=== PATIENT | male | born 1955 | race Hispanic/Latino ===

== ENCOUNTER 2017-11-21 18:01 | Emergency (ER) | payer SELFPAY ==
[2017-11-21 18:48] LABS: INR-International Normal Ratio 0.9; PTT 29.8 SEC (22.9-36.1); Prothrombin Time 12.6 SEC (12.0-14.7)
[2017-11-21 19:03] LABS: #Basophils 0.1 thou/uL (0.0-0.2); #Eosinphils 0.1 thou/uL (0.0-0.7); #Lymphocytes 2.3 thou/uL (1.20-3.40); #Neutrophils 5.6 thou/uL (1.40-6.50); %Basophils 1.1 % (0.0-1.0); %Eosinophils 1.4 % (0.0-10.0); %Monocytes 10.7 % (0.0-10.0); %Neutrophils 61.7 % (42.0-75.0); Hemoglobin 14.7 g/dL (14.0-18.0); Mean Corpuscular HGB CONC 34.2 g/dL (32.0-36.0); Mean Corpuscular Hemoglobin 31.4 pg (27.0-31.0); Mean Corpuscular Volume 91.6 fl (80.0-94.0); Mean Platelet Volume 6.7 fL (7.4-10.4); Platelet Count 353 thou/uL (130-400); RBC Distribution Width 12.4 % (11.5-14.5); Red Blood Cell (RBC) Count 4.69 mill/uL (4.70-6.10); White Blood Cell (WBC) Count 9.1 thou/uL (4.8-10.8)
[2017-11-21 19:10] LABS: ALT (SGPT) 60 U/L (8-55); AST (SGOT) 32 U/L (5-34); Albumin 4.6 g/dL (3.5-5.0); Alkaline Phosphatase 129 U/L (40-150); Anion Gap 16 mmol/L (10-20); BUN (Urea Nitrogen) 16 mg/dL (8.4-25.7); Bilirubin, Total 0.4 mg/dL (0.2-1.2); Calc. Creatinine Clearance 0 mL/min (70-130); Calcium 9.4 mg/dL (7.8-10.44); Carbon Dioxide 23 mmol/L (22-29); Chloride 97 mmol/L (98-107); Estimated GFR-MDRD Greater than 90; Globulin 3.3 g/dL (2.4-3.5); Glucose 267 mg/dL (70-105); Potassium 3.8 mmol/L (3.5-5.1); Protein, Total 7.9 g/dL (6.0-8.3); Sodium 132 mmol/L (136-145)
[2017-11-21] MEDS ORDERED: Oxymetazoline HCl 0.05% ( 15 ML ) ONE ×2 (23:38→23:40)
[2017-11-21] MEDS ORDERED: Lidocaine 1% w/Epinephrine 1:100K 20 ML VIAL ONE (23:38)
== END 2017-11-22 01:00 | disposition home or self-care (01) ==
LOC: ERS 18:01
DX: K06.9 Disorder of gingiva and edentulous alveolar ridge, unspecified (principal); E11.9 Type 2 diabetes mellitus without complications; E78.5 Hyperlipidemia, unspecified; I10 Essential (primary) hypertension
CPT/HCPCS: 36415; 80053; 85025; 85610; 85730; 99283; J2001

== ENCOUNTER 2020-07-22 06:58 | Outpatient (CLI) | payer SELFPAY ==
[2020-07-23 04:01] LABS: SARS-CoV-2 MS2 Positive; SARS-CoV-2 N Gene Negative; SARS-CoV-2 S Gene Negative; SARS-CoV-2 by NAA Not Detected (NotDetected); SARS-CoV-2 orf1ab Negative
== END 2020-07-22 06:59 | disposition home or self-care (01) ==
LOC: LABBT 06:58
PROVIDERS: ATTEND Ophthalmology Retina Specialist
DX: Z01.812 Encounter for preprocedural laboratory examination (principal); H33.42 Traction detachment of retina, left eye; Z20.828 Contact with and (suspected) exposure to other viral communicable diseases
CPT/HCPCS: 87635; U0003

== ENCOUNTER 2020-07-27 08:19 | Day surgery (SDC) | payer OTHER ==
[2020-07-26 13:01] VITALS: BMI 26.9
[~2020-07-27 08:19] MED LIST: EPINEPHrine 0.3 MG in Ophthalmic Irrigation Solution 500 ML IRR SCH; Fentanyl 100 MCG/2 ML VIAL ONE; Midazolam HCl 2 mg/2 ml Vial ONE
[2020-07-27] MEDS ORDERED: Cyclopentolate 1% Opth Drop 2 ML BOT ONE (08:43)
[2020-07-27] MEDS ORDERED: Phenylephrine 2.5% Ophth Soln 5 ML BOT ONE (08:43)
[2020-07-27] MEDS ORDERED: Midazolam HCl 2 mg/2 ml Vial ONE (09:17)
[2020-07-27] MEDS ORDERED: Famotidine/PF 20 mg/2ml Vial ONE (09:45)
[2020-07-27] MEDS ORDERED: PHENYLEPHRINE-NS 100 MCG/ML 10 ML SYRINGE ONE (09:57)
[2020-07-27] MEDS ORDERED: PROPOFOL 200 MG/20 ML VIAL ONE (09:57)
[2020-07-27] MEDS ORDERED: Lidocaine 1% PF 5 ML VIAL ONE (09:57)
[2020-07-27] MEDS ORDERED: Metoclopramide HCl 10 MG/2 ML VIAL ONE (09:57)
[2020-07-27] MEDS ORDERED: Ondansetron PF 4 MG/2 ML Vial ONE (09:57)
[2020-07-27] MEDS ORDERED: Maxitrol 0.1% Opth Oint 3.5 GM TUBE ONE (11:13)
[2020-07-27] MEDS ORDERED: Triamcinolone 40 MG/ML VIAL ONE (11:13)
[2020-07-27] MEDS ORDERED: Fentanyl 100 MCG/2 ML VIAL ONE (12:01)
--- NOTE | 2020-07-27 12:12 | OP ---
DATE OF PROCEDURE: 07/27/2020 PRINCIPAL PREOPERATIVE DIAGNOSES: 1. Macula off tractional retinal detachment, left eye. 2. Proliferative diabetic retinopathy, left eye. POSTOPERATIVE DIAGNOSIS: 1. Macula off tractional retinal detachment, left eye. 2. Proliferative diabetic retinopathy, left eye. PROCEDURE PERFORMED: 1. 25-gauge pars plana vitrectomy, left eye. 2. Tractional retinal detachment repair, left eye. 3. Proliferative panretinal photocoagulation, left eye. 4. Silicone oil fill, left eye. ESTIMATED BLOOD LOSS: None. SPECIMENS REMOVED: None. COMPLICATIONS: None. ANESTHESIA: LMA. DESCRIPTION OF PROCEDURE: The patient was identified in the preoperative holding area, where the correct eye being the left eye was marked for surgery. The patient was taken to the operating room, where general anesthesia was induced. The left eye was prepped and draped in usual sterile ophthalmic fashion for surgery. A wire-clip lid speculum was placed. A standard 25-gauge pars plana vitrectomy platform was fashioned with trocars placed approximately 4 mm from the limbus. The infusion was noted to be within the vitreous cavity prior to being turned on to an infusion pressure of 20 mmHg. The light pipe and microvitrector were introduced in the eye under visualization of the BIOM viewing system. A core and peripheral shave vitrectomy were performed taking down the vitreous to the area of the retinal detachment. A dense fibrotic band was noted along the proximal inferotemporal arcade as well as the entirety of the superotemporal arcade. This resulted in a tractional retinal detachment extending proximally to the equator. The fibrotic tissue was gently dissected with combination of the use of the microvitrector as well as using bimanual technique, using a pick fiberoptic and a 25-gauge Darryl MaxGrip forceps. The fibrosis was gently peeled off the surface of the retina, which allowed for improved mobility of the retina. A small defect was created superior to the superotemporal arcade vessels approximately 12 o'clock. This area was marked with endo cautery. The remainder of the fibrosis was continually removed in the prescribed fashion. Following complete removal of the fibrosis, an air-fluid exchange was performed through the use of the defect superiorly. This allowed for improved flattening of the retina. Following completion subsequently, the endolaser was used to provide panretinal photocoagulation as well as laser around the superior defect. The laser was noted to be as flat as to be given the complete removal of all visible fibrosis. Following laser, the flute needle was reintroduced in the eye to remove any residual subretinal fluid. A complete silicone oil fill was subsequently achieved. The cannulas were sequentially removed and all sclerotomies were sutured with 8-0 Vicryl suture. Following suturing, all sclerotomies were noted to be oil tight. Subconjunctival Kenalog was injected. The wire-clip lid speculum was removed followed by application of TobraDex ophthalmic ointment and a light patch and shield. The patient tolerated the procedure well, taken to the outpatient recovery area in good condition. Job ID: [id number]
== END 2020-07-27 14:10 | disposition home or self-care (01) ==
LOC: SDC 08:19
PROVIDERS: ATTEND Ophthalmology Retina Specialist
PROC: 08QF3ZZ Repair Left Retina, Percutaneous Approach (ICD-10-PCS; principal; 2020-07-27)
PROC: 08T53ZZ Resection of Left Vitreous, Percutaneous Approach (ICD-10-PCS; principal; 2020-07-27)
DX: E11.3532 Type 2 diabetes mellitus with proliferative diabetic retinopathy with traction retinal detachment not involving the macula, left eye (principal); Z79.84 Long term (current) use of oral hypoglycemic drugs; Z79.899 Other long term (current) drug therapy; Z88.0 Allergy status to penicillin
CPT/HCPCS: C1814; J0171; J2250; J2405; J2704; J2765; J3010; J3301; S0028

== ENCOUNTER 2023-05-10 02:47 | Inpatient (IN) | payer OTHER, SELFPAY ==
[2023-05-10] MEDS ORDERED: Cefepime 2 GM VIAL ONE (03:19)
[2023-05-10] MEDS ORDERED: LORazepam 2 MG/ML SYR.(CARPUJECT) ONE (03:19)
[2023-05-10 03:21] LABS: Hematocrit 38.1 % (42.0-52.0); Hemoglobin 13.3 g/dL (14.0-18.0); Mean Corpuscular HGB CONC 34.9 g/dL (32.0-36.0); Mean Corpuscular Hemoglobin 31.3 pg (27.0-31.0); Mean Corpuscular Volume 89.6 fl (78.0-98.0); Mean Platelet Volume 9.2 fL (7.4-10.4); Platelet Count 263 10x3/uL (130-400); RBC Distribution Width 13.1 % (11.5-14.5); Red Blood Cell (RBC) Count 4.25 mill/uL (4.70-6.10); White Blood Cell (WBC) Count 6.4 10x3/uL (4.8-10.8)
[2023-05-10 03:23] LABS: Delete Auto Diff?? YES; Manual Diff?? YES
[2023-05-10 03:28] LABS: Actual Bicarbonate (HCO3v) 19.9 mEq/L (22-28); Base Excess -3.6 mEq/L (-2.0 to +3.0); Calcium, Ionized (venous) 1.01 mmol/L (1.16-1.32); Chloride (VBG) 95 mmol/L (98-106); Hematocrit-VBG 42 % (42.0-52.0); Hemoglobin (Hb) 14.4 g/dL (12.6-17.4); Sodium 130.9 mmol/L (133-146); pH (venous) 7.412 (7.32-7.43)
[2023-05-10] MEDS ORDERED: Acetaminophen 500 MG TAB ONE (03:36)
[2023-05-10 03:45] LABS: Anisocytosis SLIGHT = 6-15 cells HPF (0-5); Band 29 % (5-11); CellaVision Operator ID lab.sh2; Large Platelets 4.1 % (0-5); Lymphocytes 6 % (21-51); Macrocytosis SLIGHT = 6-15 cells HPF (0-5); Monocytes 1 % (0-10); Neutrophil 64 % (42-75); Platelet Adequacy Comment Platelets Normal; Polychromasia SLIGHT = 2-3 cells HPF (0-2); Smudge Cells 13.3 %; Total Cell Count 98; Vacuoles SLIGHT
[2023-05-10 03:52] LABS: Acetaminophen Less than 10 mcg/mL (10.0-30.0); Alcohol Less than 10.0 mg/dL (Less than 10); Lipase 94 U/L (8-78); Magnesium 1.4 mg/dL (1.6-2.6); Salicylate Less than 8.0 mg/dL (15.0-30.0)
[2023-05-10 03:53] LABS: ALT (SGPT) 20 U/L (8-55); AST (SGOT) 24 U/L (5-34); Alkaline Phosphatase 112 U/L (40-110); Anion Gap 22 mmol/L (10-20); BUN (Urea Nitrogen) 12 mg/dL (8.4-25.7); CK (CPK) 157 U/L (30-200); Calc. Creatinine Clearance 0 mL/min (70-130); Calcium 8.5 mg/dL (7.8-10.44); Carbon Dioxide 17 mmol/L (23-31); Chloride 95 mmol/L (98-107); Estimated GFR 70; Globulin 2.7 g/dL (2.4-3.5); Glucose 276 mg/dL (80-115); Potassium 3.7 mmol/L (3.5-5.1); Protein, Total 6.7 g/dL (5.8-8.1); Sodium 130 mmol/L (136-145)
[2023-05-10 03:56] LABS: Troponin I Less than 0.010 ng/mL (< 0.028)
[2023-05-10] MEDS ORDERED: Vancomycin 1.5 GRAM/300 ML BAG 1.5 GM in Premix Bag 1 BAG IVPB SCH (04:15)
[2023-05-10 04:24] LABS: Amphetamine Not Detected (NotDetected); Barbiturates Screen Not Detected (NotDetected); Benzodiazepine Screen Not Detected (NotDetected); Cocaine Metabolite Screen Not Detected (NotDetected); Methadone Not Detected (NotDetected); Methamphetamine Not Detected (NotDetected); Opiate Screen Not Detected (NotDetected); Oxycodone Screen Not Detected (NotDetected); Phencyclidine (PCP) Not Detected (NotDetected); THC/Cannabinoid Screen Not Detected (NotDetected); Tricyclic Screen Not Detected (NotDetected)
[2023-05-10 04:25] LABS: Bacteria/HPF 3+ HPF (None Seen); Bilirubin Negative (Negative); Blood, Urine 1+ (Negative); CAUTI Indications for Culture Alt mental st,lethar; Clarity Turbid (Clear); Glucose, Urine (Dipstick) Greater than 1000 mg/dL (Negative); Ketone, Urine Trace mg/dL (Negative); Leukocyte 500 Leu/uL (Negative); Nitrite 1+ (Negative); Protein, Urine (Dipstick) 100 mg/dL (Neg-Trace); Specific Gravity, Urine 1.026 (1.002-1.036); Squamous Epithelial 0-3 HPF (0-3); Urobilinogen Normal mg/dL (Less than 2); WBC/HPF Greater than 50 HPF (0-3); pH, Urine 5.5 (5.0-9.0)
[2023-05-10 04:26] LABS: Urine Culture Reflex Yes Yes
[2023-05-10 04:35] LABS: SARS-CoV-2 NAA Rapid Test Not Detected (NotDetected)
[2023-05-10] MEDS ORDERED: Lorazepam 2 MG/ML VIAL IM PRN (06:02)
[2023-05-10] MEDS ORDERED: Lorazepam 1 MG TAB PO PRN (06:02)
[2023-05-10] MEDS ORDERED: Ondansetron ODT 4 MG TAB PO PRN (06:02)
[2023-05-10] MEDS ORDERED: Acetaminophen 325 MG TAB PO PRN ×2 (06:11→07:39)
[2023-05-10] MEDS ORDERED: Calcium Carbonate 500 MG ChewTAB PO PRN (06:11)
[2023-05-10] MEDS ORDERED: Electrolyte Replacement Protocol 1 EACH FS SCH (06:15)
[2023-05-10] MEDS ORDERED: Lorazepam 1 MG TAB PO SCH (06:15)
[2023-05-10 06:47] VITALS: BMI 23.8
[2023-05-10] MEDS ORDERED: Magnesium Sulfate In Water 4 GM in Premix Bag 1 BAG IVPB SCH (07:15)
[2023-05-10] MEDS ORDERED: Thiamine HCl 200 MG/2 ML VIAL SLOW IVP SCH ×2 (07:30→09:00)
[2023-05-10] MEDS ORDERED: VANC/ABX IVPB PRN (07:33)
[2023-05-10] MEDS ORDERED: Dextrose 5% in Water 1,000 ML IV PRN (07:34)
[2023-05-10] MEDS ORDERED: Glucagon 1 MG/ML KIT IM PRN (07:34)
[2023-05-10] MEDS ORDERED: Dextrose 50% Abboject 50 ML SYRINGE SLOW IVP PRN (07:34)
[2023-05-10] MEDS ORDERED: Thiamine HCl 500 MG in Sodium Chloride 0.9% 100 ML IVPB SCH (08:00)
[2023-05-10 08:30] LABS: Phosphorus Less than 1.0 mg/dL (2.3-4.7)
[2023-05-10] MEDS ORDERED: Labetalol HCl 100 MG/20 ML VIAL SLOW IVP PRN (09:22)
[2023-05-10] MEDS ORDERED: metroNIDAZOLE 500 MG TAB PO SCH (09:30)
[2023-05-10] MEDS: Lactated Ringer's 1,000 ML IV SCH ×2 (09:41→18:26)
[2023-05-10] MEDS ORDERED: Ipratropium/Albuterol 3 ML NEB NEB PRN (10:18)
[2023-05-10] MEDS: Famotidine 20 MG TAB PO SCH ×2 (13:59→21:34)
[2023-05-10] MEDS: Folic Acid 1 MG TAB PO SCH (13:59)
[2023-05-10] MEDS: metroNIDAZOLE 500 MG TAB PO SCH ×2 (14:01→21:34)
[2023-05-10] MEDS: K-Phos Neutral 250 MG TAB PO SCH ×2 (14:03→18:27)
[2023-05-10] MEDS: Multivit, Therapeutic 1 TAB PO SCH (14:05)
[2023-05-10] MEDS: Cefepime 1 GM in Sodium Chloride 0.9% 100 ML IVPB SCH (14:54)
[2023-05-10 16:38] LABS: Lactic Acid 1.7 mmol/L (0.5-2.2)
[2023-05-10] MEDS ORDERED: Vancomycin 1 GM in Premix Bag 1 BAG IVPB SCH (17:00)
[2023-05-10] MEDS: HumaLOG 300 UNITS/3 ML VIAL SC PRN (18:27)
[2023-05-10 20:24] LABS: Chloride 101 mmol/L (98-107)
[2023-05-10 20:25] LABS: Calcium 7.9 mg/dL (7.8-10.44); Glucose 266 mg/dL (80-115); Potassium 3.9 mmol/L (3.5-5.1); Sodium 130 mmol/L (136-145)
[2023-05-10 20:27] LABS: Anion Gap 16 mmol/L (10-20); Carbon Dioxide 17 mmol/L (23-31)
[2023-05-10 20:29] LABS: Calc. Creatinine Clearance 88 mL/min (70-130); Estimated GFR 97
[2023-05-10 20:30] LABS: BUN (Urea Nitrogen) 13 mg/dL (8.4-25.7)
[2023-05-10] MEDS: guaiFENesin ER 600 MG TAB PO SCH (21:34)
[2023-05-10] MEDS: Cyanocobalamin (Vitamin B-12) 1,000 MCG TAB PO SCH (21:34)
[2023-05-10] MEDS: Saccharomyces boulardii 250 MG CAP PO SCH (21:35)
[2023-05-11] MEDS: Cefepime 1 GM in Sodium Chloride 0.9% 100 ML IVPB SCH (03:29)
[2023-05-11] MEDS: Lactated Ringer's 1,000 ML IV SCH ×3 (04:06→18:19)
[2023-05-11 04:29] LABS: #Monocytes 0.5 thou/uL (0.11-0.59); #Neutrophils 10.6 thou/uL (1.40-6.50); %Basophils 0.3 % (0.0-1.0); %Eosinophils 0.2 % (0.0-10.0); %Lymphocytes 7.4 % (21.0-51.0); %Monocytes 3.7 % (0.0-10.0); Hematocrit 32.3 % (42.0-52.0); Hemoglobin 11.3 g/dL (14.0-18.0); Mean Corpuscular Hemoglobin 31.7 pg (27.0-31.0); Mean Corpuscular Volume 90.7 fl (78.0-98.0); Mean Platelet Volume 9.3 fL (7.4-10.4); Platelet Count 204 10x3/uL (130-400); RBC Distribution Width 13.2 % (11.5-14.5); Red Blood Cell (RBC) Count 3.56 mill/uL (4.70-6.10)
[2023-05-11 05:05] LABS: ALT (SGPT) 29 U/L (8-55); AST (SGOT) 44 U/L (5-34); Albumin 2.9 g/dL (3.4-4.8); Alkaline Phosphatase 77 U/L (40-110); Anion Gap 12 mmol/L (10-20); BUN (Urea Nitrogen) 8 mg/dL (8.4-25.7); Bilirubin, Total 0.6 mg/dL (0.2-1.2); Calc. Creatinine Clearance 106 mL/min (70-130); Calcium 7.6 mg/dL (7.8-10.44); Carbon Dioxide 21 mmol/L (23-31); Chloride 99 mmol/L (98-107); Estimated GFR 102; Globulin 2.7 g/dL (2.4-3.5); Glucose 165 mg/dL (80-115); Magnesium 1.7 mg/dL (1.6-2.6); Phosphorus 1.6 mg/dL (2.3-4.7); Potassium 3.1 mmol/L (3.5-5.1); Protein, Total 5.6 g/dL (5.8-8.1); Sodium 129 mmol/L (136-145)
[2023-05-11] MEDS ORDERED: Lorazepam 1 MG TAB PO PRN (06:04)
[2023-05-11] MEDS: HumaLOG 300 UNITS/3 ML VIAL SC PRN ×4 (06:49→21:17)
[2023-05-11] MEDS: Multivit, Therapeutic 1 TAB PO SCH (08:17)
[2023-05-11] MEDS: guaiFENesin ER 600 MG TAB PO SCH ×2 (08:17→20:03)
[2023-05-11] MEDS: Thiamine HCl 250 MG, Admixture Fee 1 EACH in Sodium Chloride 0.9% 100 ML IVPB SCH (08:17)
[2023-05-11] MEDS: Folic Acid 1 MG TAB PO SCH (08:17)
[2023-05-11] MEDS: metroNIDAZOLE 500 MG TAB PO SCH ×3 (08:17→20:03)
[2023-05-11] MEDS: Famotidine 20 MG TAB PO SCH ×2 (08:18→20:02)
[2023-05-11] MEDS: K-Phos Neutral 250 MG TAB PO SCH ×3 (08:18→17:06)
[2023-05-11] MEDS: Cefepime 2 GM in Sodium Chloride 0.9% 100 ML IVPB SCH (15:21)
[2023-05-11] MEDS: glipiZIDE 10 MG TAB PO SCH (17:06)
[2023-05-11] MEDS: hydrALAZINE 25 MG TAB PO SCH (17:06)
[2023-05-11] MEDS ORDERED: Loperamide HCl 2 MG CAP PO SCH (19:00)
[2023-05-11] MEDS: Cyanocobalamin (Vitamin B-12) 1,000 MCG TAB PO SCH (20:02)
[2023-05-11] MEDS: Saccharomyces boulardii 250 MG CAP PO SCH (20:03)
[2023-05-11] MEDS: cloNIDine 0.1 MG TAB PO PRN (20:56)
[2023-05-12] MEDS: Cefepime 2 GM in Sodium Chloride 0.9% 100 ML IVPB SCH ×2 (03:16→16:20)
[2023-05-12] MEDS: Lactated Ringer's 1,000 ML IV SCH ×4 (03:16→23:32)
[2023-05-12 05:20] LABS: #Eosinphils 0.1 thou/uL (0.0-0.7); #Monocytes 0.7 thou/uL (0.11-0.59); #Neutrophils 8.9 thou/uL (1.40-6.50); %Basophils 0.3 % (0.0-1.0); %Eosinophils 0.7 % (0.0-10.0); %Monocytes 6.6 % (0.0-10.0); %Neutrophils 81.9 % (42.0-75.0); Hematocrit 33.5 % (42.0-52.0); Hemoglobin 11.8 g/dL (14.0-18.0); Mean Corpuscular HGB CONC 35.2 g/dL (32.0-36.0); Mean Corpuscular Hemoglobin 31.1 pg (27.0-31.0); Mean Corpuscular Volume 88.4 fl (78.0-98.0); Mean Platelet Volume 9.9 fL (7.4-10.4); Platelet Count 233 10x3/uL (130-400); Red Blood Cell (RBC) Count 3.79 mill/uL (4.70-6.10); White Blood Cell (WBC) Count 10.8 10x3/uL (4.8-10.8)
[2023-05-12] MEDS: cloNIDine 0.1 MG TAB PO PRN ×2 (05:34→11:17)
[2023-05-12] MEDS: HumaLOG 300 UNITS/3 ML VIAL SC PRN ×4 (05:36→20:30)
[2023-05-12 05:51] LABS: ALT (SGPT) 26 U/L (8-55); AST (SGOT) 29 U/L (5-34); Albumin 3.3 g/dL (3.4-4.8); Alkaline Phosphatase 106 U/L (40-110); Anion Gap 10 mmol/L (10-20); BUN (Urea Nitrogen) 8 mg/dL (8.4-25.7); Bilirubin, Total 0.6 mg/dL (0.2-1.2); Calc. Creatinine Clearance 106 mL/min (70-130); Calcium 8.9 mg/dL (7.8-10.44); Carbon Dioxide 23 mmol/L (23-31); Chloride 99 mmol/L (98-107); Estimated GFR 102; Globulin 2.9 g/dL (2.4-3.5); Glucose 194 mg/dL (80-115); Magnesium 1.6 mg/dL (1.6-2.6); Phosphorus 2.4 mg/dL (2.3-4.7); Potassium 3.3 mmol/L (3.5-5.1); Protein, Total 6.2 g/dL (5.8-8.1); Sodium 129 mmol/L (136-145)
[2023-05-12] MEDS ORDERED: Lorazepam 1 MG TAB PO PRN (06:04)
[2023-05-12] MEDS ORDERED: Lorazepam 0.5 MG TAB PO SCH (06:15)
[2023-05-12] MEDS: glipiZIDE 10 MG TAB PO SCH ×2 (08:57→16:20)
[2023-05-12] MEDS: metroNIDAZOLE 500 MG TAB PO SCH ×2 (08:57→15:57)
[2023-05-12] MEDS: Multivit, Therapeutic 1 TAB PO SCH (08:57)
[2023-05-12] MEDS: K-Phos Neutral 250 MG TAB PO SCH ×3 (08:57→16:20)
[2023-05-12] MEDS: guaiFENesin ER 600 MG TAB PO SCH ×2 (08:57→20:07)
[2023-05-12] MEDS: Alogliptin 25 MG TAB PO SCH (08:57)
[2023-05-12] MEDS: Multivitamin W/ Minerals 1 TAB PO SCH (08:57)
[2023-05-12] MEDS: Amlodipine 10 MG TAB PO SCH (08:58)
[2023-05-12] MEDS: Famotidine 20 MG TAB PO SCH ×2 (08:58→20:07)
[2023-05-12] MEDS: Folic Acid 1 MG TAB PO SCH (08:58)
[2023-05-12] MEDS: Thiamine HCl 250 MG, Admixture Fee 1 EACH in Sodium Chloride 0.9% 100 ML IVPB SCH (08:58)
[2023-05-12] MEDS: hydrALAZINE 25 MG TAB PO SCH ×2 (08:58→16:20)
[2023-05-12] MEDS: Saccharomyces boulardii 250 MG CAP PO SCH (20:06)
[2023-05-12] MEDS: Cyanocobalamin (Vitamin B-12) 1,000 MCG TAB PO SCH (20:07)
[2023-05-13] MEDS: Cefepime 2 GM in Sodium Chloride 0.9% 100 ML IVPB SCH ×2 (03:03→16:04)
[2023-05-13 05:23] LABS: Anion Gap 15 mmol/L (10-20); BUN (Urea Nitrogen) 11 mg/dL (8.4-25.7); Calc. Creatinine Clearance 114 mL/min (70-130); Calcium 8.8 mg/dL (7.8-10.44); Carbon Dioxide 22 mmol/L (23-31); Chloride 97 mmol/L (98-107); Estimated GFR 104; Glucose 207 mg/dL (80-115); Magnesium 1.5 mg/dL (1.6-2.6); Phosphorus 3.5 mg/dL (2.3-4.7); Potassium 3.5 mmol/L (3.5-5.1); Sodium 130 mmol/L (136-145)
[2023-05-13] MEDS: HumaLOG 300 UNITS/3 ML VIAL SC PRN ×4 (05:33→21:27)
[2023-05-13] MEDS: cloNIDine 0.1 MG TAB PO PRN (05:38)
[2023-05-13] MEDS ORDERED: Lorazepam 0.5 MG TAB PO PRN (06:04)
[2023-05-13] MEDS: hydrALAZINE 25 MG TAB PO SCH ×2 (08:38→16:04)
[2023-05-13] MEDS: Lisinopril 20 MG TAB PO SCH (08:38)
[2023-05-13] MEDS: Lactated Ringer's 1,000 ML IV SCH (08:38)
[2023-05-13] MEDS: Amlodipine 10 MG TAB PO SCH (08:38)
[2023-05-13] MEDS: Alogliptin 25 MG TAB PO SCH (08:38)
[2023-05-13] MEDS: glipiZIDE 10 MG TAB PO SCH ×2 (08:38→16:04)
[2023-05-13] MEDS: K-Phos Neutral 250 MG TAB PO SCH ×2 (08:38→11:38)
[2023-05-13] MEDS: guaiFENesin ER 600 MG TAB PO SCH ×2 (08:39→21:25)
[2023-05-13] MEDS: Famotidine 20 MG TAB PO SCH ×2 (08:39→21:25)
[2023-05-13] MEDS: Multivit, Therapeutic 1 TAB PO SCH (08:39)
[2023-05-13] MEDS: Folic Acid 1 MG TAB PO SCH (08:39)
[2023-05-13] MEDS: Multivitamin W/ Minerals 1 TAB PO SCH (08:39)
[2023-05-13] MEDS ORDERED: Thiamine 100 MG TAB PO SCH (09:00)
[2023-05-13] MEDS: Thiamine HCl 250 MG, Admixture Fee 1 EACH in Sodium Chloride 0.9% 100 ML IVPB SCH (09:14)
[2023-05-13] MEDS ORDERED: Magnesium Oxide 400 MG TAB PO SCH (16:00)
[2023-05-13] MEDS: metFORMIN 500 MG TAB PO SCH (16:04)
[2023-05-13] MEDS: Saccharomyces boulardii 250 MG CAP PO SCH (21:25)
[2023-05-13] MEDS: Magnesium Oxide 400 MG TAB PO SCH (21:25)
[2023-05-13] MEDS: Cyanocobalamin (Vitamin B-12) 1,000 MCG TAB PO SCH (21:25)
[2023-05-14] MEDS: Cefepime 2 GM in Sodium Chloride 0.9% 100 ML IVPB SCH (02:32)
[2023-05-14] MEDS: HumaLOG 300 UNITS/3 ML VIAL SC PRN (05:49)
[2023-05-14] MEDS: Amlodipine 10 MG TAB PO SCH (08:39)
[2023-05-14] MEDS: Multivit, Therapeutic 1 TAB PO SCH (08:41)
[2023-05-14] MEDS: glipiZIDE 10 MG TAB PO SCH (08:41)
[2023-05-14] MEDS: Alogliptin 25 MG TAB PO SCH (08:42)
[2023-05-14] MEDS: metFORMIN 500 MG TAB PO SCH (08:43)
[2023-05-14] MEDS: Multivitamin W/ Minerals 1 TAB PO SCH (08:44)
[2023-05-14] MEDS: Folic Acid 1 MG TAB PO SCH (08:44)
[2023-05-14] MEDS: Lisinopril 20 MG TAB PO SCH (08:45)
[2023-05-14] MEDS: hydrALAZINE 25 MG TAB PO SCH (08:46)
[2023-05-14] MEDS: guaiFENesin ER 600 MG TAB PO SCH (08:46)
[2023-05-14] MEDS: Famotidine 20 MG TAB PO SCH (08:47)
[2023-05-14] MEDS: Magnesium Oxide 400 MG TAB PO SCH (08:49)
[2023-05-14] MEDS ORDERED: Thiamine 100 MG TAB PO SCH (09:00)
[2023-05-14 14:23] VITALS: BP 154/76; TEMP 98.1
== END 2023-05-14 14:09 | disposition home or self-care (01) | DRG 872 ==
LOC: ERS 02:47 → ERHOLD 06:18 → 2NO 11:31
PROVIDERS: ADMIT Internal Medicine; ATTEND Internal Medicine
DX: A41.51 Sepsis due to Escherichia coli [E. coli] (principal); N39.0 Urinary tract infection, site not specified; E87.20 Acidosis, unspecified; E87.1 Hypo-osmolality and hyponatremia; N17.9 Acute kidney failure, unspecified; E11.9 Type 2 diabetes mellitus without complications; R65.20 Severe sepsis without septic shock; I10 Essential (primary) hypertension; E78.5 Hyperlipidemia, unspecified; E87.6 Hypokalemia; E83.42 Hypomagnesemia; E83.39 Other disorders of phosphorus metabolism; G93.0 Cerebral cysts; Z20.822 Contact with and (suspected) exposure to COVID-19; D63.8 Anemia in other chronic diseases classified elsewhere; Z88.0 Allergy status to penicillin; Z79.84 Long term (current) use of oral hypoglycemic drugs; Z79.899 Other long term (current) drug therapy
CPT/HCPCS: 36415; 36416; 51701; 70450; 71045; 74176; 80048; 80053; 80306; 80307; 81001; 82010; 82550; 82805; 83036; 83605; 83690; 83735; 84100; 84443; 84484; 85025; 86140; 87040; 87077; 87086; 87149; 87186; 93005; 96365; 96367; 96375; J0692; J1815; J2060; J3370; J3411; J3475; J3490; J7030; J7120